=== PATIENT | female | born 1990 | race Caucasian/White ===

== ENCOUNTER 2017-12-01 01:40 | Emergency (ER) | payer OTHER ==
[~2017-12-01] VITALS: Ht 167.6 cm; Wt 67.8 kg
[~2017-12-01 01:40] MED LIST: BACTRIM,SEPT1 TABLET PO; CEFDINIR300 MG PO; KEFLEX500 MG PO; MOTRIN600 MG PO; MOTRIN800 MG PO; NAPROSYN500 MG PO; NAPROXEN500 M1 PO; SKELAXIN800 MG PO; ULTRACET1 TABLET PO; ULTRAM50 MG PO; ZANTAC150 MG PO
[2017-12-01 04:43] LABS: HEMATOCRIT 38.1 % (36.0-46.0); HEMOGLOBIN 13.5 G/DL (11.9-15.5); MCH 30.9 PG (29.0-34.0); MCHC 35.4 G/DL (30.0-36.0); MCV 87.2 FL (83-99); PLATELET COUNT 291 K/uL (156-360); RBC DIS.WIDTH-CV 11.5 % (11.8-14.6); RBC DIS.WIDTH-SD 36.8 % (39-53); RED BLOOD COUNT 4.37 M/uL (3.80-5.20); WHITE BLOOD COUNT 6.7 K/uL (4.1-10.2)
[2017-12-01 04:54] LABS: CHLORIDE 102 mEq/L (99-109); POTASSIUM 3.5 mEq/L (3.7-5.4); SODIUM 138 mEq/L (136-147)
[2017-12-01 04:56] LABS: GLUCOSE 90 mg/dL (70-99)
[2017-12-01 04:58] LABS: APPEARANCE CLEAR ((CLEAR)); BILIRUBIN NEGATIVE; BLOOD MODERATE; COLOR AMBER ((YELLOW)); GLUCOSE (STRIP) NEGATIVE; KETONES NEGATIVE; LEUKOCYTES SMALL; NITRITE POSITIVE; PROTEIN (STRIP) NEGATIVE; SPECIFIC GRAVITY 1.008 (1.000-1.030)
[2017-12-01 05:00] LABS: CREATININE 0.8 mg/dL (0.6-1.3); GFR ESTIMATE (CALCULATED) > 59 mL/min/
[2017-12-01 05:01] LABS: UREA NITROGEN (BUN) 9 mg/dL (9-23)
[2017-12-01 05:06] LABS: BACTERIA RARE /HPF; EPITHELIAL CELLS RARE /HPF; MUCUS NONE SEEN /LPF; RED BLOOD CELLS 0-5 /HPF (0-5); UCUL ADDED? YES
[2017-12-01 05:11] LABS: QUANTITATIVE HCG < 4.0 MIU/ML
[2017-12-01] MEDS ORDERED: VANTIN100 MG PO (06:33)
[2017-12-01] MEDS ORDERED: ZOFRAN4 MG PO (06:33)
[2017-12-01] MEDS ORDERED: PYRIDIUM100 MG PO (06:33)
[2017-12-01 06:58] VITALS: BP 108/73
== END 2017-12-01 07:06 | disposition home or self-care (01) ==
LOC: EME 01:40
PROVIDERS: Emergency Medicine
DX: N30.01 Acute cystitis with hematuria (principal); R11.0 Nausea; F17.200 Nicotine dependence, unspecified, uncomplicated; Z88.1 Allergy status to other antibiotic agents; Z88.8 Allergy status to other drugs, medicaments and biological substances
CPT/HCPCS: 74176; 80048; 81003; 84702; 85027; 87086; 99281; 99284; J0696; J2405; J7030

== ENCOUNTER 2018-04-20 00:39 | Emergency (ER) | payer OTHER ==
[~2018-04-20] VITALS: Ht 165.1 cm; Wt 68.0 kg
[~2018-04-20 00:39] MED LIST changes: +PYRIDIUM100 MG PO; +VANTIN100 MG PO; +ZOFRAN4 MG PO
[2018-04-20] MEDS ORDERED: ROBITUSSIN AC,T10 ML PO (02:26)
[2018-04-20 02:56] VITALS: BP 139/88
== END 2018-04-20 02:57 | disposition home or self-care (01) ==
LOC: EME 00:39
DX: J20.9 Acute bronchitis, unspecified (principal); Z88.1 Allergy status to other antibiotic agents; F17.200 Nicotine dependence, unspecified, uncomplicated
CPT/HCPCS: 94640; 99281; 99283

== ENCOUNTER 2018-05-25 00:57 | Emergency (ER) | payer OTHER ==
[~2018-05-25] VITALS: Ht 167.6 cm; Wt 69.2 kg
[~2018-05-25 00:57] MED LIST changes: +ROBITUSSIN AC,T10 ML PO
[2018-05-25 01:00] VITALS: BP 169/98
[2018-05-25] MEDS ORDERED: ULTRAM50 MG PO (01:51)
[2018-05-25] MEDS ORDERED: AMOXICILLIN500 MG PO (01:51)
== END 2018-05-25 02:20 | disposition home or self-care (01) ==
LOC: EME 00:57
DX: H92.02 Otalgia, left ear (principal); R68.84 Jaw pain; K02.9 Dental caries, unspecified; Z88.1 Allergy status to other antibiotic agents
CPT/HCPCS: 99281; 99283